=== PATIENT | male | born 1955 | race Caucasian/White ===

== ENCOUNTER 2025-04-02 19:30 | Inpatient (IN) ==
[2025-04-02] MEDS ORDERED: IOPAMIDOL 100 ML BOTTLE IV ONE (19:31)
[2025-04-02] MEDS: 0.9 % SODIUM CHLORIDE 1,000 ML IV ONE (20:04)
[2025-04-02 20:23] LABS: ALT/SGPT 18 U/L (<40); AST/SGOT 16 U/L (<40); Albumin 3.2 gm/dL (3.2-5.2); Albumin/Globulin Ratio 1.8 (1.0-2.3); Alkaline Phosphatase 55 U/L (39-117); Bilirubin,Total 0.6 mg/dL (0.1-1.0); Blood Urea Nitrogen 37 mg/dL (8-23); Calcium 7.8 mg/dL (8.6-10.4); Carbon Dioxide 22 mmol/L (22-30); Chloride 98 mmol/L (96-108); Globulin 1.8 gm/dL (2.2-3.7); Glomerular Filtration Rate 56; Glucose 131 mg/dL (70-105); Potassium 3.7 mmol/L (3.3-5.1); Sodium 133 mmol/L (133-145)
[2025-04-02 20:51] LABS: Basophils # (Auto) 0.02 K/mcL (0.00-0.30); Basophils % (Auto) 0.1 % (0.0-2.0); Eosinophils # (Auto) 0.09 K/mcL (0.00-0.70); Eosinophils % (Auto) 0.6 % (0.0-7.0); Hematocrit 38.8 % (40.1-51.0); Hemoglobin 12.9 g/dL (13.7-17.5); Lymphocytes % (Auto) 13.6 % (15.5-49.0); Mean Cell Volume 98.5 fL (80.0-100.0); Mean Corpuscular HGB Conc 33.2 g/dL (31.0-36.0); Mean Platelet Volume 10.7 fL (8.8-12.5); Monocytes # (Auto) 0.95 K/mcL (0.10-0.90); Monocytes % (Auto) 6.5 % (1.0-12.0); Platelet Count 144 K/mcL (140-440); RBC 3.94 M/mcL (4.63-6.08); Red Cell Distribution Width 13.4 % (11.5-14.5); WBC 14.7 K/mcL (4.5-11.0)
[2025-04-02 21:28] LABS: Alcohol, Blood < 10.1 mg/dL; Alcohol,Blood < 0.010 gm/dL (<0.010)
[2025-04-02] MEDS: PANTOPRAZOLE 40 MG VIAL IV ONE (21:57)
[2025-04-02 22:01] LABS: Prothrombin Time 14.2 sec (11.9-14.5)
[2025-04-02] MEDS ORDERED: DEXTROSE 50% 50 ML VIAL IV PRN (22:35)
[2025-04-02] MEDS ORDERED: ONDANSETRON 4 MG/2 ML VIAL IV PRN (22:35)
[2025-04-02] MEDS ORDERED: DEXTROSE 31 GM ORAL.SUSP PO PRN (22:35)
[2025-04-02] MEDS ORDERED: ACETAMINOPHEN 325 MG TABLET PO PRN (22:35)
[2025-04-02 22:47] LABS: Appearance,Urine Clear (Clear); Bilirubin,Urine Negative (Negative); Color,Urine Yellow; Glucose,Urine (UA) Negative (Negative); Ketones,Urine Trace mg/dL (Negative); Leukocyte Esterase,Urine Negative /uL (Negative); Mucus,Urine Few /hpf; Nitrate,Urine Negative (Negative); PH,Urine 5.5 (5.0-9.0); Protein,Urine Negative (Negative); Specific Gravity,Urine <= 1.005 (1.000-1.035); Urine Blood Negative ery/mcL (Negative); Urine Hyaline Cast 6 /lph (0-2); Urine RBC 1 /hpf (0-3); Urine Squamous Epithelial Cell 1 /hpf (0-4); Urine WBC 2 /hpf (0-4); Urobilinogen,Urine Normal
[2025-04-02 23:23] LABS: Amphetamine Screen,Urine None detected; Barbiturate Screen,Urine None detected; Benzodiazepines Screen,Urine None detected; Cannabinoid Screen,Urine Suspect Positive; Cocaine Screen,Urine None detected; Fentanyl, Urine Screen None Detected; Opiate Screen,Urine None detected; Oxycodone, Urine Screen None detected; Phencyclidine Screen,Urine None detected
[2025-04-02] MEDS: 0.9 % SODIUM CHLORIDE 1,000 ML IV SCH (23:24)
[2025-04-02 23:35] LABS: Free T4 (Free Thyroxine) 1.68 ng/dL (0.93-1.70); Thyroid Stimulating Hormone 0.85 uIU/mL (0.27-5.01)
[2025-04-03] MEDS: 0.9 % SODIUM CHLORIDE 1,000 ML IV ONE ×2 (00:30→01:12)
[2025-04-03] MEDS: 0.9 % SODIUM CHLORIDE 250 ML IV SCH (00:34)
[2025-04-03] MEDS: PANTOPRAZOLE 40 MG VIAL IV SCH (00:55)
[2025-04-03] MEDS: PANTOPRAZOLE 40 MG VIAL IV ONE (00:55)
[2025-04-03 01:01] LABS: Hematocrit 36.8 % (40.1-51.0); Hemoglobin 12.4 g/dL (13.7-17.5)
[2025-04-03] MEDS: HYDROCORTISONE SOD SUCC 100 MG VIAL ONE (03:21)
[2025-04-03] MEDS: HYDROCORTISONE SOD SUCC 100 MG VIAL IV ONE (03:21)
[2025-04-03 06:52] LABS: Basophils # (Auto) 0.02 K/mcL (0.00-0.30); Basophils % (Auto) 0.2 % (0.0-2.0); Eosinophils # (Auto) 0.06 K/mcL (0.00-0.70); Eosinophils % (Auto) 0.7 % (0.0-7.0); Hematocrit 36.9 % (40.1-51.0); Hemoglobin 12.5 g/dL (13.7-17.5); Lymphocytes # (Auto) 1.69 K/mcL (1.50-4.80); Lymphocytes % (Auto) 19.1 % (15.5-49.0); Mean Cell Volume 98.4 fL (80.0-100.0); Mean Corpuscular HGB Conc 33.9 g/dL (31.0-36.0); Mean Platelet Volume 11.4 fL (8.8-12.5); Monocytes # (Auto) 0.52 K/mcL (0.10-0.90); Monocytes % (Auto) 5.9 % (1.0-12.0); Neutrophils % (Auto) 73.8 % (38.0-78.0); Platelet Count 134 K/mcL (140-440); RBC 3.75 M/mcL (4.63-6.08); Red Cell Distribution Width 13.4 % (11.5-14.5); WBC 8.8 K/mcL (4.5-11.0)
[2025-04-03] MEDS ORDERED: DEXTROSE 50% 50 ML VIAL IV PRN (06:59)
[2025-04-03] MEDS ORDERED: DEXTROSE 31 GM ORAL.SUSP PO PRN (06:59)
[2025-04-03 07:20] LABS: C-Reactive Protein < 0.30 mg/dL (0.03-0.80); Creatine Kinase 38 U/L (24-195)
[2025-04-03 07:23] LABS: ALT/SGPT 17 U/L (<40); AST/SGOT 13 U/L (<40); Albumin 3.1 gm/dL (3.2-5.2); Albumin/Globulin Ratio 1.9 (1.0-2.3); Alkaline Phosphatase 48 U/L (39-117); Bilirubin,Direct 0.2 mg/dL (<0.3); Bilirubin,Total 0.4 mg/dL (0.1-1.0); Blood Urea Nitrogen 24 mg/dL (8-23); Calcium 7.5 mg/dL (8.6-10.4); Carbon Dioxide 21 mmol/L (22-30); Chloride 105 mmol/L (96-108); Globulin 1.6 gm/dL (2.2-3.7); Glomerular Filtration Rate 91; Glucose 107 mg/dL (70-105); Lactate Dehydrogenase 132 U/L (135-225); Phosphorous 2.4 mg/dL (2.5-4.5); Potassium 3.2 mmol/L (3.3-5.1); Sodium 137 mmol/L (133-145); Triglycerides 106 mg/dL (<150); Uric Acid 6.5 mg/dL (2.5-8.0)
[2025-04-03] MEDS ORDERED: INSULIN LISPRO 1 UNIT/0.01 ML UNIT SQ SCH (07:30)
[2025-04-03] MEDS: INSULIN LISPRO 1 UNIT/0.01 ML UNIT SQ SCH (07:36)
[2025-04-03] MEDS: 0.9 % SODIUM CHLORIDE 1,000 ML IV SCH (07:51)
[2025-04-03] MEDS: POTASSIUM CHLORIDE 20 MEQ TABLET PO ONE (07:57)
[2025-04-03 10:55] LABS: Hemoglobin A1C 6.5 % Hgb (4.0-6.0)
[2025-04-03] MEDS: predniSONE 20 MG TABLET PO ONE (14:27)
== END 2025-04-03 14:00 | disposition left against medical advice (07) | DRG 315 ==
LOC: ED 19:30 → ICU 23:05
PROVIDERS: ADMIT Internal Medicine; ATTEND Internal Medicine